=== PATIENT | male | born 1970 | race Caucasian/White ===

== ENCOUNTER 2016-08-11 19:53 | Emergency (ER) | payer BC ==
[~2016-08-11] VITALS: Ht 172.7 cm; Wt 93.0 kg
[2016-08-11 21:16] LABS: HEMATOCRIT 42.6 % (38.0-50.0); MCH 30.7 PG (29.0-34.0); MCHC 33.8 G/DL (30.0-36.0); MCV 90.8 FL (86-99); PLATELET COUNT 237 K/uL (156-360); RBC DIS.WIDTH-CV 12.3 % (11.8-14.6); RBC DIS.WIDTH-SD 40.9 % (39-53); RED BLOOD COUNT 4.69 M/uL (4.00-5.50)
[2016-08-11 21:23] LABS: CHLORIDE 99 mEq/L (99-109); POTASSIUM 4.1 mEq/L (3.7-5.4); SODIUM 135 mEq/L (136-147)
[2016-08-11 21:25] LABS: GLUCOSE 112 mg/dL (70-99)
[2016-08-11 21:26] LABS: ANION GAP 14 MEQ/L (2-14)
[2016-08-11 21:29] LABS: ALKALINE PHOSPHATASE 70 IU/L (3-129); GFR ESTIMATE (CALCULATED) > 59 mL/min/
[2016-08-11 21:30] LABS: UREA NITROGEN (BUN) 15 mg/dL (9-23)
[2016-08-11] MEDS ORDERED: COLACE100 MG PO (22:00)
[2016-08-11 22:30] VITALS: BP 132/91
== END 2016-08-11 22:30 | disposition home or self-care (01) ==
LOC: EXP 19:53 → EME 19:53 → EXP 22:30
PROVIDERS: Physician Assistant
DX: K59.00 Constipation, unspecified (principal); R10.9 Unspecified abdominal pain; R11.10 Vomiting, unspecified
CPT/HCPCS: 80053; 83605; 85027; 99281; 99285; J7030

== ENCOUNTER 2016-08-13 13:08 | Inpatient (IN) | payer BC ==
[~2016-08-13] VITALS: Ht 172.7 cm; Wt 93.9 kg
[~2016-08-13 13:08] MED LIST: COLACE100 MG PO
[2016-08-13 13:58] LABS: HEMATOCRIT 42.5 % (38.0-50.0); MCH 30.7 PG (29.0-34.0); MCHC 34.1 G/DL (30.0-36.0); MEAN PLAT.VOLUME 10.5 uM^3 (9.0-12.4); PLATELET COUNT 265 K/uL (156-360); RBC DIS.WIDTH-SD 40.3 % (39-53); RED BLOOD COUNT 4.72 M/uL (4.00-5.50)
[2016-08-13 14:05] LABS: CHLORIDE 99 mEq/L (99-109); POTASSIUM 4.2 mEq/L (3.7-5.4); SODIUM 136 mEq/L (136-147)
[2016-08-13 14:07] LABS: GLUCOSE 117 mg/dL (70-99)
[2016-08-13 14:09] LABS: ANION GAP 13 MEQ/L (2-14)
[2016-08-13 14:10] LABS: TOTAL BILIRUBIN 1.4 mg/dL (0.0-1.0)
[2016-08-13 14:11] LABS: ALKALINE PHOSPHATASE 82 IU/L (3-129); GFR ESTIMATE (CALCULATED) > 59 mL/min/
[2016-08-13 14:12] LABS: UREA NITROGEN (BUN) 9 mg/dL (9-23)
[2016-08-13 15:16] LABS: ADD MIUA? YES; BILIRUBIN NEGATIVE; BLOOD SMALL; COLOR YELLOW ((YELLOW)); GLUCOSE (STRIP) NEGATIVE; KETONES 5; LEUKOCYTES NEGATIVE; NITRITE NEGATIVE; PROTEIN (STRIP) 30; SPECIFIC GRAVITY 1.014 (1.000-1.030); UROBILINOGEN 0.2 MG/DL (0.2-1.0)
[2016-08-13 15:37] LABS: BACTERIA 1+ /HPF; CASTS PRESENT /LPF; EPITHELIAL CELLS RARE /HPF; MUCUS 3+ /LPF; UCUL ADDED? NO; WHITE BLOOD CELLS 0-5 /HPF (0-5)
[2016-08-13 15:39] LABS: CRYSTALS NONE SEEN
[2016-08-13] MEDS ORDERED: TYLENOL EXTRA500 MG PO (17:36)
[2016-08-13 21:48] LABS: C DIFF TOXIN NEGATIVE (NEGATIVE)
[2016-08-13 21:49] LABS: PROBE CHECK PASS; SPECIMEN PROCESSING CONTROL PASS
[2016-08-13 22:10] VITALS: BP 148/86
[2016-08-13 22:18] VITALS: BP 148/86
[2016-08-13 23:26] VITALS: BP 142/65
[2016-08-14 03:02] VITALS: BP 124/62
[2016-08-14 06:00] LABS: HEMATOCRIT 36.1 % (38.0-50.0); MCH 30.8 PG (29.0-34.0); MCHC 34.3 G/DL (30.0-36.0); MCV 89.8 FL (86-99); MEAN PLAT.VOLUME 10.7 uM^3 (9.0-12.4); PLATELET COUNT 212 K/uL (156-360); RBC DIS.WIDTH-CV 12.3 % (11.8-14.6); RBC DIS.WIDTH-SD 40.5 % (39-53); RED BLOOD COUNT 4.02 M/uL (4.00-5.50); WHITE BLOOD COUNT 13.2 K/uL (4.1-10.2)
[2016-08-14 06:03] LABS: ANION GAP 10 MEQ/L (2-14); CHLORIDE 102 MEQ/L (99-109); GFR ESTIMATE (CALCULATED) > 59 mL/min/; GLUCOSE 102 mg/dL (70-99); POTASSIUM 4.1 MEQ/L (3.7-5.4); SAMPLE HEMOLYSIS CHECK 0; SAMPLE ICTERIC CHECK 0; SAMPLE LIPEMIA CHECK 0; SODIUM 138 MEQ/L (136-147); UREA NITROGEN (BUN) 10 mg/dL (9-23)
[2016-08-14 08:00] VITALS: BP 149/84
[2016-08-14 16:34] VITALS: BP 143/85
[2016-08-14 21:00] VITALS: BP 152/84
[2016-08-14 23:54] VITALS: BP 125/72
[2016-08-15 04:35] VITALS: BP 146/80
[2016-08-15 05:23] LABS: HEMATOCRIT 34.5 % (38.0-50.0); MCH 30.8 PG (29.0-34.0); MCHC 33.6 G/DL (30.0-36.0); MCV 91.5 FL (86-99); MEAN PLAT.VOLUME 10.9 uM^3 (9.0-12.4); PLATELET COUNT 239 K/uL (156-360); RBC DIS.WIDTH-CV 12.7 % (11.8-14.6); RBC DIS.WIDTH-SD 42.3 % (39-53); RED BLOOD COUNT 3.77 M/uL (4.00-5.50); WHITE BLOOD COUNT 11.2 K/uL (4.1-10.2)
[2016-08-15 07:00] VITALS: BP 151/92
[2016-08-15 09:10] LABS: MAGNESIUM 2.2 mg/dl (1.3-2.7); POTASSIUM 4.1 MEQ/L (3.7-5.4)
[2016-08-15 11:29] VITALS: BP 136/86
[2016-08-15 15:40] VITALS: BP 121/82
[2016-08-15 19:40] VITALS: BP 142/88
[2016-08-15 23:39] VITALS: BP 139/70
[2016-08-16 03:34] VITALS: BP 141/92
[2016-08-16 05:22] LABS: HEMATOCRIT 33.8 % (38.0-50.0); MCH 30.4 PG (29.0-34.0); MCHC 33.4 G/DL (30.0-36.0); MCV 90.9 FL (86-99); MEAN PLAT.VOLUME 10.4 uM^3 (9.0-12.4); PLATELET COUNT 281 K/uL (156-360); RBC DIS.WIDTH-CV 12.5 % (11.8-14.6); RBC DIS.WIDTH-SD 41.9 % (39-53); RED BLOOD COUNT 3.72 M/uL (4.00-5.50); WHITE BLOOD COUNT 10.4 K/uL (4.1-10.2)
[2016-08-16 05:54] LABS: ANION GAP 11 MEQ/L (2-14); CHLORIDE 106 MEQ/L (99-109); GFR ESTIMATE (CALCULATED) > 59 mL/min/; GLUCOSE 87 mg/dL (70-99); POTASSIUM 3.8 MEQ/L (3.7-5.4); SAMPLE HEMOLYSIS CHECK 0; SAMPLE ICTERIC CHECK 0; SAMPLE LIPEMIA CHECK 0; SODIUM 143 MEQ/L (136-147); UREA NITROGEN (BUN) 10 mg/dL (9-23)
[2016-08-16 07:52] VITALS: BP 130/77
[2016-08-16] MEDS ORDERED: FLAGYL500 MG PO (09:58)
[2016-08-16] MEDS ORDERED: CIPRO500 MG PO (09:58)
== END 2016-08-16 14:32 | disposition home or self-care (01) | DRG 392 ==
LOC: EME 13:08 → EDOF 19:20 → 3EAST 20:49 → EDOF 20:49 → 3EAST 21:56
PROVIDERS: Internal Medicine; Internal Medicine Gastroenterology; Nurse Practitioner Family; Physician Assistant
DX: K57.32 Diverticulitis of large intestine without perforation or abscess without bleeding (principal); E66.3 Overweight; Z68.31 Body mass index [BMI] 31.0-31.9, adult; K58.9 Irritable bowel syndrome, unspecified; K56.60 Unspecified intestinal obstruction
CPT/HCPCS: 74177; 80048; 80053; 81003; 83605; 83630; 83735; 84132; 85027; 87040; 87493; 87506; 99281; 99284; J2543; J7030; J7040; J7050